=== PATIENT | female | born 1955 | race Caucasian/White ===

== ENCOUNTER 2019-05-05 14:52 | Emergency (ER) | payer MEDICAID ==
[~2019-05-05] VITALS: Ht 160 cm; Wt 86.6 kg
[2019-05-05 14:57] VITALS: BP 142/84
[2019-05-05] MEDS ORDERED: ACETAMINOPHEN 325 MG TABLET PO ONE (15:30)
[2019-05-05] MEDS ORDERED: ACETAMINOPHEN ES 500 MG TABLET ONE (15:37)
--- NOTE | 2019-05-05 17:00 | NUR ---
Patient stated no one will pick her up ,she has 90 years old Mom ,,her friend @ bedside name nicole Hurt agrees to bring her home patient agrees ,DC home instruction given and DC form and CD ,patient non distress patient able to ambulated and place RT sling to arm
--- NOTE | 2019-05-05 17:18 | NUR ---
Patient discharged to home in stable condition. Written and verbal after care instructions given. Patient verbalizes understanding of instruction.
== END 2019-05-05 17:26 | disposition home or self-care (01) ==
LOC: ER 14:55
DX: S00.03XA Contusion of scalp, initial encounter (principal); M25.511 Pain in right shoulder; I10 Essential (primary) hypertension; W18.39XA Other fall on same level, initial encounter; Y93.89 Activity, other specified; Y92.89 Other specified places as the place of occurrence of the external cause; Y99.8 Other external cause status
CPT/HCPCS: 70450-TC; 72125-TC; 73030-TC; 73060-TC